=== PATIENT | male | born 1990 | race Caucasian/White ===

== ENCOUNTER 2020-10-21 20:40 | Emergency (ER) | payer BC ==
[2020-10-22] MEDS ORDERED: ASPIRIN81 MG PO (01:50)
[2020-10-22] MEDS ORDERED: AUGMENTIN 875-1 EACH PO (03:16)
== END 2020-10-22 03:15 | disposition home or self-care (01) ==
LOC: ER1 20:40
DX: U07.1 COVID-19 (principal)
CPT/HCPCS: 71045; 87081; 87880; 99283; U0002